=== PATIENT | male | born 1965 | race Caucasian/White ===

== ENCOUNTER 2023-12-30 16:31 | Outpatient (CLI) | payer BC, SELFPAY ==
[2023-12-30 14:39] LABS: CREATININE 1.1 mg/dL (0.70-1.30); Estimated GFR 78.79 (mL/min/1.73m2); Potassium 4.6 mmol/L (3.5-5.1)
[2023-12-30 15:18] LABS: Hemoglobin A1C 6.1 % (<5.7)
[2023-12-30 22:19] LABS: Estradiol 122 pg/mL (<40)
== END 2023-12-30 16:32 | disposition home or self-care (01) ==
LOC: LBO 16:32
PROVIDERS: Visit Provider Nurse Practitioner Family
DX: Z79.899 Other long term (current) drug therapy (principal); Z13.1 Encounter for screening for diabetes mellitus
CPT/HCPCS: 36415; 82565; 82670; 83036; 84132